=== PATIENT | female | born 1995 | race Two or more races ===

== ENCOUNTER 2019-07-04 23:00 | Outpatient (CLI) | payer SELFPAY ==
[2019-07-05 00:10] LABS: BACTERIA (WET MOUNT) 4+ BACTERIA SEEN; EPITHELIALS (WET MOUNT) 3+ EPITHELIALS SEEN; RBCS (WET MOUNT) NO RBCS SEEN; T.VAGINALIS (WET MOUNT) NO TRICHOMONAS SEEN; WBCS (WET MOUNT) 4+ WBCS SEEN; YEAST (WET MOUNT) NO YEAST SEEN
[2019-07-05 00:25] LABS: ABSOLUTE EOSINOPHILS # (AUTO) 0.1 10^3/uL (0.0-0.6); ABSOLUTE LYMPHOCYTES (AUTO) 1.3 10^3/uL (0.5-4.7); ABSOLUTE MONOCYTES (AUTO) 0.7 10^3/uL (0.1-1.4); ABSOLUTE NEUT (AUTO) 6.5 10^3/uL (1.7-8.2); BASOPHILS % (AUTO) 0.3 % (0-2); EOSINOPHILS % (AUTO) 0.6 % (0-6); HEMATOCRIT 37.6 % (36.0-47.0); LYMPHOCYTES % (AUTO) 14.9 % (13-45); MEAN CORPUSCULAR HEMOGLOBIN 30.2 pg (27.0-33.4); MEAN CORPUSCULAR HGB CONC 34.6 g/dL (32.0-36.0); MEAN CORPUSCULAR VOLUME 87 fl (80-97); MONOCYTES % (AUTO) 8.3 % (3-13); PLATELET COUNT 246 10^3/uL (150-450); RED BLOOD COUNT 4.31 10^6/uL (3.72-5.28); RED CELL DISTRIBUTION WIDTH 14.5 % (11.5-14.0); SEGMENTED NEUTROPHILS % (AUTO) 75.9 % (42-78); TOTAL CELLS COUNTED % (AUTO) 100 %; WHITE BLOOD COUNT 8.6 10^3/uL (4.0-10.5)
[2019-07-05 00:30] LABS: APPEARANCE,URINE CLEAR; BILIRUBIN,URINE NEGATIVE (NEGATIVE); COLOR,URINE YELLOW; GLUCOSE, URINE NEGATIVE (NEGATIVE); KETONES,URINE NEGATIVE (NEGATIVE); LEUKOCYTE ESTERASE,URINE NEGATIVE (NEGATIVE); NITRITE,URINE NEGATIVE (NEGATIVE); PROTEIN,URINE NEGATIVE (NEGATIVE); URINE SPECIFIC GRAVITY 1.011; UROBILINOGEN,URINE NEGATIVE mg/dL (<2.0)
[2019-07-05 00:36] LABS: INTERNATIONAL RATION (INR) 0.88; PROTHROMBIN TIME 11.9 SEC (11.4-15.4)
[2019-07-05 00:39] LABS: URINE AMPHETAMINES SCREEN NEGATIVE; URINE BARBITURATES SCREEN NEGATIVE; URINE BENZODIAZEPINES SCREEN NEGATIVE; URINE COCAINE SCREEN NEGATIVE; URINE MARIJUANA (THC) SCREEN NEGATIVE; URINE METHADONE SCREEN NEGATIVE; URINE PHENCYCLIDINE SCREEN NEGATIVE
[2019-07-05 01:41] LABS: CHLAM PCR NOT DETECTED (NOT DETECT)
--- NOTE | 2019-07-05 01:52 | RADIOLOGY REPORT (SQ) ---
EXAM DESCRIPTION: [facility]: US FOLLOW UP CLINICAL HISTORY: 23 years Female; Patient Fell; complete OB U/S with cervical length TECHNIQUE: Transabdominal obstetrical ultrasound was performed. COMPARISON: None. FINDINGS: Number of fetuses: Single position: Transverse BPD: 8.82 cm, 35 weeks 5 days HC: 11.64 cm, 35 weeks 4 days AC: 29.89 cm, 33 weeks 6 days FL: 6.51 cm, 33 weeks 4 days EFW: 2354 g, 61% HR: 141 BPM Anatomy: Detailed survey was not performed. There is a three-vessel cord. Amniotic fluid: ROSETTA 15.6 cm, adequate Cervix: 2.6 cm, closed Placenta: Anterior. No retroplacental hematoma. IMPRESSION: 1. Single viable IUP. No acute findings. 2. EGA 34 weeks 5 days, EDC 08/11/2019
[2019-07-05 02:48] LABS: ALBUMIN 3.4 g/dL (3.5-5.0); ALKALINE PHOSPHATASE 191 U/L (38-126); ANION GAP 9 (5-19); ASPARTATE AMINO TRANSFERASE 24 U/L (14-36); BILIRUBIN,DIRECT 0.2 mg/dL (0.0-0.4); BILIRUBIN,TOTAL 0.8 mg/dL (0.2-1.3); BLOOD UREA NITROGEN 7 mg/dL (7-20); CALCIUM 8.8 mg/dL (8.4-10.2); CARBON DIOXIDE 18 mmol/L (22-30); CHLORIDE 110 mmol/L (98-107); GLUCOSE 80 mg/dL (75-110); POTASSIUM 4.4 mmol/L (3.6-5.0); TOTAL PROTEIN 6.7 g/dL (6.3-8.2); URIC ACID 4.6 mg/dL (2.5-6.2)
[2019-07-05 03:07] LABS: RHOGAM DOSE INDICATED 0 VIAL(S)
[2019-07-05 03:21] LABS: UR PRO/CREAT RATIO RESULT 0.2 mg/mg (0.0-0.2); URINE CREATININE 65.7 mg/dL (16-327); URINE PROTEIN 14.4 mg/dL (<12)
--- NOTE | 2019-07-05 04:10 | Non Stress Test Report ---
Non Stress Test Datetime Report Generated by CPN: 07/05/2019 04:10 DEMOGRAPHIC Test Number: 1 EGA NST: 32.6 INDICATION Indication for Study (NST) Other: no care URINE RESULTS Urine Protein, NST: Negative Urine Ketones - NST: Negative Urine Glucose - NST: Negative Urine Blood - NST: Negative MONITORING Monitor Explained: Monitor Explained; Test Explained; Patient Verbalized Understanding Time on Monitor: 07/05/2019 01:16 NST INTERVENTIONS NST Interventions: PO Hydration BABY A: [id number] BABY A Movement : Present Contraction Frequency : none FHR Baseline : 140 Accelerations : 15X15 Decelerations : None Variability : Moderate 6-25bpm NST Review: Meets Criteria for Reactive NST NST Review and Verified By : Reginald Garcia RN NST Results: Reactive NST REPORT Report Trigger: Send Report (Annotations: Data stored by N on behalf of user)
[2019-07-06 05:37] LABS: HEPATITIS C VIRUS AB <0.1 s/co ratio (0.0-0.9)
[2019-07-06 07:10] LABS: HEPATITS B SURFACE ANTIGEN Negative (Negative)
== END 2019-07-05 04:36 | disposition home or self-care (01) ==
LOC: LC 23:00
PROVIDERS: ATTEND Student in an Organized Health Care Education/Training Program
PROC: 4A1HXCZ Monitoring of Products of Conception, Cardiac Rate, External Approach (ICD-10-PCS; principal; 2019-07-04)
DX: O9A.213 Injury, poisoning and certain other consequences of external causes complicating pregnancy, third trimester (principal); O26.893 Other specified pregnancy related conditions, third trimester; Z3A.32 32 weeks gestation of pregnancy
CPT/HCPCS: 36415; 76805; 80053; 80307; 81001; 82570; 83615; 84156; 84550; 85025; 85460; 85610; 85730; 86592; 86701; 86762; 86803; 86804; 86850; 86900; 86901; 87210; 87340; 87491; 87591

== ENCOUNTER 2019-07-06 10:04 | Outpatient (CLI) | payer SELFPAY ==
[2019-07-06 11:08] LABS: 24 HOUR URINE PROTEIN RESULT 162 mg/day (42-225); URINE PROTEIN 14.2 mg/dL (<12)
--- NOTE | 2019-07-06 11:59 | Non Stress Test Report ---
Non Stress Test Datetime Report Generated by CPN: 07/06/2019 11:58 DEMOGRAPHIC EGA NST: 33.0 INDICATION Indication for Study (NST) Other: iup 33 weeks proteinuria MONITORING Monitor Explained: Monitor Explained; Test Explained; Patient Verbalized Understanding Time on Monitor: 07/06/2019 11:28 Time off Monitor: 07/06/2019 11:57 NST Duration: 29 NST INTERVENTIONS NST Interventions: PO Hydration Physician Notified NST: A Jimenez CNM BABY A: [id number] BABY A Movement : Present Contraction Frequency : 0 FHR Baseline : 140 Accelerations : 15X15 Decelerations : None Variability : Moderate 6-25bpm NST Review: Meets Criteria for Reactive NST NST Review and Verified By : D Bellavance RN NST Results: Reactive NST REPORT Report Trigger: Send Report
== END 2019-07-06 12:05 | disposition home or self-care (01) ==
LOC: LC 10:04
PROVIDERS: ATTEND Obstetrics & Gynecology
PROC: 4A1HXCZ Monitoring of Products of Conception, Cardiac Rate, External Approach (ICD-10-PCS; principal; 2019-07-06)
DX: O12.13 Gestational proteinuria, third trimester (principal); Z3A.33 33 weeks gestation of pregnancy
CPT/HCPCS: 59025; 84156